=== PATIENT | female | born 1980 | race Caucasian/White ===

== ENCOUNTER 2017-07-20 06:00 | Inpatient (IN) | payer MEDICAID ==
--- NOTE | 2017-07-19 16:02 | PDGENHP ---
History and Physical History and Physical: CARE: [facility] [facility] HPI: Patient is a 36yo with demise at 15wks 6 days that presents to L& D for IOL. She was seen in office on 07/18/17 for her routine OB visit and was found to have IUFD. US done, which confirmed no cardiac activity, BDP 15wks (2.84cm). She denies any cramps/pain, LOF, VB. EDC: 01/04/2018 which is based on 5-6wks LMP: February, but unsure Her is complicated by: AMA, BMI 31, demise @ 15-4wks Review of Systems: Constitutional: Denies any fever, chills, or fatigue HEENT: denies any visual changes, difficulty swallowing, hearing loss Cardiovascular: Denies any chest pain, palpitations, leg swelling Respiratory: denies any cough, wheezing, or shortness of breathe GI: Denies any nausea, vomiting, diarrhea, constipation : denies any dysuria, urgency, frequency, vaginal bleeding Musculoskeletal: denies any muscle or bone pain Skin: denies any rashes Neuro: denies any headache, seizures, lightheadedness, dizziness, or loss of consciousness Psychiatric: denies any depression, anxiety, or SI/HI thoughts HISTORY: Previous OB history: x1, SAB x2 (no D&C) Past medical history: noncontributory Past surgical history: none Social History: university teacher, ( [employer]) Medications: PNV Allergies (list reaction): PCN- hives LABS: Rh: O+ ABS: Neg Rubella: Immune HbsAg: NR HIV: NR VDRL: NR 1hr: not done GC: Neg Chlamydia: Neg Pap: Normal GBS: unknown NIPT: negative BMI: (prepreg)31 PHYSICAL EXAM: Constitutional: WN, A&Ox3 HEENT: normocephalic atraumatic, supple Heart: RRR, no murmur Chest: CTA-B Abdomen: Soft, nontender, gravid SVE: cl/th/high Extremities: no edema, negative homans sign Neuro: grossly normal Psych: normal affect Assessment: 1) [id number] with demise @ 15-4wks 2) IOL 2/2 demise Plan: 1) Admit to L&D 2) IOL with high dose cytotec
[2017-07-20] MEDS ORDERED: EPSOM SALT 454 GM TP PRN (08:53)
[2017-07-20] MEDS ORDERED: LR 1,000 ML IV PRN (08:53)
[2017-07-20] MEDS ORDERED: LIDOCAINE 1% 300 MG/30 ML SDV SC PRN (08:53)
[2017-07-20] MEDS ORDERED: MISOPROSTOL 200 MCG TAB PR PRN (08:53)
[2017-07-20] MEDS ORDERED: OLIVE OIL 118 ML BTL MISC PRN (08:53)
[2017-07-20] MEDS ORDERED: OXYTOCIN/RINGERS LACTATE 1,000 ML IV PRN (08:53)
[2017-07-20] MEDS ORDERED: IBUPROFEN 600 MG TAB PO PRN ×2 (08:53→23:58)
[2017-07-20] MEDS ORDERED: TERBUTALINE SULFATE 1 MG/ML VIAL IV PRN (08:53)
--- NOTE | 2017-07-20 09:48 | PDMN ---
Medical Necessity Medical necessity: Pt meets IP criteria per MD; est los >2 mn for eval/tx of 36yo with demise at 15 weeks & 6 days; admit for IOL w/high dose Cytotec & further monitoring; per H&P & order 07/20/17
[2017-07-20 10:38] LABS: PLATELET COUNT 273 10^3/uL (150-400)
[2017-07-20] MEDS ORDERED: MISOPROSTOL 200 MCG TAB PO SCH (11:00)
[2017-07-20] MEDS: MISOPROSTOL 200 MCG TAB PO SCH ×4 (14:11→23:26)
[2017-07-20] MEDS: DIPHENOXYLATE/ATROPINE LOMOTIL 1 TAB PO PRN ×2 (14:11→18:47)
[2017-07-20] MEDS ORDERED: ONDANSETRON DISINTEGRATING 4 MG TAB PO PRN (20:04)
--- NOTE | 2017-07-20 20:09 | OBPROG ---
Labor Progress Note Assessment/Plan: Assessment:/Plan: 36 with a 15w6d demise, undergoing misoprostil induction. Diarrhea - treating with Lomotil. Some N/V - will treat with Zofran -has been using in . Does not desire any testing. Marlena Shoemaker MD, FACOG 07/20/17 20:05 Subjective/Intrapartum Course: Doing well, though feeling a lot of cramping - feels like cramping from diarrhea and menstrual cramps. Declines a cervix check. 07/20/17 20:08 Objective: 07/20/17 10:24 Patient ABO/Rh O POSITIVE 07/20/17 10:24 37.5 18 83 139/73 gen - pleasant, NAD Oxytocin Orders Assessment - Pre-Induction/Augmentation Assessment Gestational Age: 16 week(s) and 0 day(s) ICD10 Worksheet Patient Problems: Problems Problem Status Onset Active labor at term Acute Delivery normal Acute
[2017-07-20] MEDS ORDERED: fentaNYL 100 MCG/2 ML INJ ONE (23:02)
--- NOTE | 2017-07-20 23:34 | OBDEL ---
Info Type: Vaginal L&D Analgesia/Anesthesia Type: None, IV Narcotics (received one dose of Fentanyl after delivery of placenta) GBS+: No Intrapartum Medications: Generic Name Dose Route Start Last Admin Trade Name Freq PRN Reason Stop Dose Admin Diphenoxylate HCl/Atropine 1 tab 07/20/17 13:38 07/20/17 18:47 Lomotil PO 01/16/18 13:37 1 tab QID PRN Administration Diarrhea/Loose Stools Misoprostol 400 mcg 07/20/17 14:00 07/20/17 20:08 Cytotec PO 07/21/17 03:01 400 mcg Q3HRS AWILDA Administration Ondansetron HCl 4 mg 07/20/17 20:04 07/20/17 20:20 Zofran Odt PO 01/16/18 20:03 4 mg Q6HRS PRN Administration Nausea/Vomiting, Use 1st Discontinued Medications Generic Name Dose Route Start Last Admin Trade Name Freq PRN Reason Stop Dose Admin Misoprostol 600 mcg 07/20/17 11:00 07/20/17 11:09 Cytotec PO 07/20/17 11:01 600 mcg Q6H AWILDA Administration - Hospital Course Intrapartum: Doing well, though feeling a lot of cramping - feels like cramping from diarrhea and menstrual cramps. Declines a cervix check. 07/20/17 20:08 Indications for Delivery: Elective (16 week demise) Vaginal Delivery - Delivery Provider Delivery Physician/CNM: Marlena Shoemaker - Labor and Delivery Rupture of Membranes Time: 22:40 Rupture of Membranes Type: Spontaneous Amniotic Fluid Color: Bloody Placenta Delivery Date: 07/20/17 Placenta Delivery Time: 22:49 Vaginal Sponge Count Correct: Yes Vaginal Needle Count Correct: Yes Vaginal Sweep Performed: Yes EBL: 150 Delivery Comment: Minutes after I checked her cervix and determined she was 2.5 / 60 / with membranes hourglassing through her cervix, her membranes ruptured spontaneously and minute after that she passed the fetus spontaneously while standing. She and her preferred not to see the fetus, so the cord was clamped and the fetus was quietly removed from the room. When she was back in bed, minutes later the placenta delivered spontaneously. Exam revealed some retained tissue coming through the cervical os. She was uncomfortable, so the bed was broken down and her feet were placed in stirrups, and she was given 50mcg of Fentanyl IV. A speculum was inserted and a ring forceps was used to remove some remaining placental fragments in the os. An abdominal ultrasound was done and this revealed a thin endometrial stripe with a sliver of fluid in the endometrial canal. No evidence of retained placental fragments. Bleeding was minimal with an EBL of 150ml. Plan -one more dose of 400mcg misoprostil buccally. Discussion immediately prior to delivery, pt and do not desire any testing of the fetus. They had negative Innatal (cfDNA) testing early in . Brief examination of fetus - 66g, grossly appears normal, consistent with female genitalia, though in the right upper arm there is a constriction possibly consistent with an amniotic band. This is not present in the left arm. Placenta also appears normal and intact. - Medications Labor Augmentation/Induction Methods Used: Misoprostol Data BLANCA: 01/04/18 Gestational Age: 16 week(s) and 1 day(s) Ash Delivery Date: 07/20/17 (stillborn) Delivery Time: 22:45 Weight (gm): 66 kg ICD10 Worksheet Patient Problems: Problems Problem Status Onset demise due to miscarriage Acute demise due to miscarriage Acute Active labor at term Acute Delivery normal Acute - ICD10 Problem Qualifiers (1) demise due to miscarriage (2) demise due to miscarriage
[2017-07-20] MEDS ORDERED: SIMETHICONE 80 MG TAB CHEW PO PRN (23:58)
[2017-07-20] MEDS ORDERED: ACETAMINOPHEN 325 MG TAB PO PRN (23:58)
[2017-07-20] MEDS ORDERED: DOCUSATE SODIUM 100 MG CAP PO PRN (23:58)
[2017-07-20] MEDS ORDERED: HYDROCORTISONE 0.5% CREAM TP PRN (23:58)
[2017-07-21] MEDS ORDERED: fentaNYL 100 MCG/2 ML INJ IVP ONE (00:20)
--- NOTE | 2017-07-21 09:27 | OBGCSDC ---
General Delivery Information - General Info : 4 Para: 2 Abortions: 2 Type: Vaginal L&D Analgesia/Anesthesia Type: None, IV Narcotics (received one dose of Fentanyl after delivery of placenta) Admission Date: 07/20/17 Labs: Patient ABO/Rh O POSITIVE 07/20/17 10:24 Hct 41.0 % (38.0-47.0) 07/20/17 10:24 - Hospital Course Intrapartum: Doing well, though feeling a lot of cramping - feels like cramping from diarrhea and menstrual cramps. Declines a cervix check. 07/20/17 20:08 : S) Pt doing well, reports min pain and bleeding. she is ambulating and voiding without difficulty. She is sad, but appropriate. She desires discharge home today. Her , Miguelangel, is present and supportive. O) VSS, afebrile constitutional: WNWF, A&Ox3 HEENT: normocephalic, atraumatic, supple Heart: RRR, No murmur Chest: CTA-B Abdomen: Soft, nontender Uterus: Firm @Symphysis +1 Lochia: Minimal rubra Perineum: Intact Extremities: no edema, and negative Dario's sign Neuro: Grossly normal A) [id number] S/P IUFD/15wk vaginal delivery P) Discharge home today f/u in office in 1 week bleeding and danger S&S discussed pelvic rest 07/21/17 21:33 Vaginal - Delivery Provider Delivery Physician/CNM: Marlena Shoemaker - Diagnosis Rupture of Membranes Type: Spontaneous Amniotic Fluid Color: Bloody - Delivery EBL: 150 [place] Data BLANCA: 01/04/18 Gestational Age: 16 week(s) and 1 day(s) Ash Delivery Date: 07/20/17 (stillborn) Delivery Time: 22:45 Sex of Infant: Female [place] Weight (gm): 66 kg Discharge Information - Discharge Information Prescriptions: Ibuprofen [Motrin (*)] 600 mg PO Q6HRS PRN #30 tab PRN Reason: Pain, Mild Condition: Good Instruction/Follow Up: One Week
== END 2017-07-21 10:20 | disposition home or self-care (01) | DRG 560 ==
LOC: EDSTATUS 06:00 → FLD 08:10
PROVIDERS: ADMIT Hospitalist; ATTEND Advanced Practice Midwife
PROC: 10E0XZZ Delivery of Products of Conception, External Approach (ICD-10-PCS; principal; 2017-07-20)
PROC: 3E00XGC Introduction of Other Therapeutic Substance into Skin and Mucous Membranes, External Approach (ICD-10-PCS; principal; 2017-07-20)
DX: O02.1 Missed abortion (principal); Z3A.16 16 weeks gestation of pregnancy
CPT/HCPCS: J3010